=== PATIENT | male | born 1995 ===

== ENCOUNTER 2016-11-21 21:41 | Emergency (ER) | payer BC ==
[~2016-11-21] VITALS: Ht 180.3 cm; Wt 70.9 kg
[2016-11-21 21:46] VITALS: BP 141/89; PULSE 85; TEMP 36.7; O2SAT 99; Ht 180.3 cm; Wt 70.9 kg
[2016-11-21] MEDS ORDERED: AMOXICIL/CLAVU 875MG HOME PACK PO ONE (22:00)
[2016-11-21] MEDS ORDERED: AMOX875T PO (22:02)
--- NOTE | 2016-11-21 22:47 | EMERGENCY ROOM VISIT NOTE ---
History First contact with patient: 21:54 Chief Complaint: EAR PAIN Stated Complaint: L EAR PAIN History of Present Illness The patient is a 21 year old male who presents to the Emergency Room with ear pain worsening over the past 2-3 days. The patient states he has had a persistent nagging cough for about the past 8 days. He does have some sinus congestion but no fever or chills. He is without chest pain, chest tightness, shortness of breath, or sore throat. He is not taking anything over-the- counter for his discomfort. He considers himself usually healthy without chronic medical disease. He rates his discomfort a 6/10. Review of Systems More than 10 systems were reviewed and otherwise negative with the exception of history of present illness. Past Medical/Surgical History No chronic medical disease Family History No pertinent family history Social History Smoking Status: Never Smoker Occupation Status: [employer] student Current/Historical Medications Scheduled Amoxicillin & Pot Clavulanate (Augmentin 875-125 mg), 1 TAB PO BID Allergies Coded Allergies: No Known Allergies (Unverified , 11/21/16) Physical Exam Vital Signs Date Time Temp Pulse Resp B/P Pulse Ox O2 Delivery O2 Flow Rate FiO2 11/21/16 21:46 36.7 85 20 141/89 99 Room Air Pain Rating (0-10): 3.0 Physical Exam VITALS: Vitals are noted on the nurse's note and reviewed by myself. Vital signs stable. GENERAL: Well-developed, well-nourished, white male, who is in no acute distress and resting comfortably. Patient is cooperative with the examination. HEAD: Normocephalic atraumatic. EARS: External ear normal. External auditory with cerumen bilateral. TMs not visualized. No mastoid tenderness. EYES: Pupils equal round and reactive to light and accommodation. Conjunctivae without injection, sclerae without icterus. Extraocular movements intact. NOSE: Patent, turbinates without inflammation or discharge. MOUTH: Mucous membranes moist. Tonsils are not enlarged. Pharynx without erythema, blood, or exudate. Uvula midline. Airway patent. NECK: Supple without nuchal rigidity. No lymphadenopathy. No thyromegaly. Cervical spine is nontender. HEART: Regular rate and rhythm without murmurs gallops or rubs. LUNGS: Clear to auscultation bilaterally without wheezes, rales or rhonchi. No retractions or accessory muscle use. Dry cough is noted. Medical Decision & Procedures Medications Administered Medications (Trade) Dose Ordered Sig/Lety Route Start Time Stop Time Status Last Admin Dose Admin Amoxicillin/ Clavulanate Potassium (Augmentin 875MG Home Pack) 1 homepack UD ONCE PO 11/21/16 22:00 11/21/16 22:01 DC 11/21/16 22:00 1 HOMEPACK ED Course Physical exam and history were performed. Nursing notes and EMR were reviewed. Patient appears to have left ear pain for the past few days. He does have a dry cough on exam. The patient does not appear toxic and his exam is otherwise fairly benign. His TMs are not visualized due to cerumen. The patient will be started on Augmentin for his symptoms and asked to follow-up with [facility]. He may use ibuprofen and Tylenol for pain control. He was otherwise invited back to the ER with any new, worsening, or concerning symptoms. The chart was completed utilizing [employer] Speech Voice Recognition Software. Grammatical errors, random word insertions, pronoun errors, and incomplete sentences are an occasional consequence of this system due to software limitations, ambient noise, and hardware issues. Any formal questions or concerns about the content, text, or information contained within the body of this dictation should be directly addressed to the provider for clarification. . Medical Decision Differential diagnosis: Etiologies such as viral syndrome, otitis, pharyngitis, pneumonia, influenza, meningitis, urinary tract infection, sepsis, bacteremia, as well as others were entertained. Impression Primary Impression: Otalgia of left ear Additional Impression: Cough Departure Information Dispostion Home / Self-Care Condition GOOD Prescriptions Amoxicillin & Pot Clavulanate (Augmentin 875-125 mg) 1 Tab Tab 1 TAB PO BID for 9 Days, #18 TAB Prov: Moises Colin PA-C 11/21/16 Referrals No Doctor, Assigned (PCP) Forms HOME CARE DOCUMENTATION FORM, IMPORTANT VISIT INFORMATION Patient Instructions My [facility] Additional Instructions You were seen and evaluated today on an emergency basis only. This is not a substitute for, or an effort to provide, complete comprehensive medical care. It is not possible to recognize and treat all injuries or illnesses in a single emergency department visit. For this reason it is recommended that you followup with [facility] this week for ongoing care and evaluation. For baseline pain relief you may alternate ibuprofen and acetaminophen every 4 hours for pain control. Take 600 mg ibuprofen (Advil) and then 4 hours later take 1000 mg acetaminophen (Tylenol). Do not take more than 3000 mg acetaminophen in a single day. Amoxicillin Clavulanate (Augmentin) 875mg: Take one pill twice daily for 10 total days for your infection. All antibiotics can cause diarrhea. If this occurs and you feel worse or it does not resolve in 1-2 days follow up with your doctor or return to the Emergency Department as this could be signs of serious underlying problems. Any medication can cause an allergic reaction, stop the pills immediately and return to the ER for rash, hives, breathing difficulties, or swelling. You are welcome to return to the emergency department anytime with new, worsening, or concerning symptoms. Problem Qualifiers
== END 2016-11-21 22:27 | disposition home or self-care (01) ==
LOC: C.EDB 21:43 → C.EDD 22:27
DX: H92.02 Otalgia, left ear (principal); R05 Cough

== ENCOUNTER 2017-07-07 00:17 | Emergency (ER) | payer BC ==
[~2017-07-07] VITALS: Ht 180.3 cm; Wt 73.3 kg
[2017-07-07 00:16] VITALS: TEMP 36.3; Ht 180.3 cm; Wt 73.3 kg
[2017-07-07 00:32] VITALS: O2SAT 96
--- NOTE | 2017-07-07 00:49 | EMERGENCY ROOM VISIT NOTE ---
History Report prepared by Zohra: Nilson Chavarria Under the Supervision of: Dr. Agata Cohn D.O. First contact with patient: 00:20 Chief Complaint: ALCOHOL OVERDOSE Stated Complaint: ALCOHOL History of Present Illness The patient is a 22 year old male who presents to the Emergency Room with an alcohol overdose. This history is limited secondary to the patient's intoxication, thus being given by the police. Tonight, the patient was drinking alcohol at the [facility]. Afterward, he was walking down the sidewalks "flicking" cars off driving on the road. The police were called to the scene. When they arrived, they witnessed the patient fall onto his face. There was no loss of consciousness. He does not know how much he drank. He denies any more nausea after vomiting on the hospital room floor. He denies any neck pain, chest pain, back pain, abdominal pain, shortness of breath, leg pain , or arm pain. Source of History: patient, police Onset: Tonight Position: other (Global) Symptom Intensity: moderate Quality: other (ETOH Intoxication) Timing: constant Associated Symptoms: + vomiting, No neck pain, No chest pain, No SOB, No nausea, No abdominal pain, No back pain Review of Systems ROS is limited secondary to the patient's intoxication. Past Medical & Surgical Unable to obtain secondary to the patient's intoxication Family History Unable to obtain secondary to the patient's intoxication. Social History Smoking Status: Current Every Day Smoker Alcohol Use: occasionally Occupation Status: [employer] student Current/Historical Medications No Active Prescriptions or Reported Meds Allergies Coded Allergies: No Known Allergies (Unverified , 11/21/16) Physical Exam Vital Signs Date Time Temp Pulse Resp B/P (MAP) Pulse Ox O2 Delivery O2 Flow Rate FiO2 07/07/17 08:17 100 16 117/79 100 07/07/17 06:02 83 16 106/53 94 Room Air 07/07/17 04:19 78 07/07/17 04:15 82 16 98/68 95 07/07/17 02:46 78 16 109/65 96 Room Air 07/07/17 02:10 78 16 111/70 95 Room Air 07/07/17 01:03 95 16 115/63 94 Room Air 07/07/17 00:32 96 Room Air 07/07/17 00:25 122 07/07/17 00:16 36.3 135 16 109/85 100 Room Air Physical Exam GENERAL: Intoxicated appearing, smells of alcohol, well nourished, no distress, non-toxic HEAD: normal cephalic, abrasion noted to left superior forehead. EYE EXAM: minimal injected conjunctiva, PERRL and EOM's grossly intact OROPHARYNX: no exudate, no erythema, lips, buccal mucosa, and tongue normal and mucous membranes are moist. No evidence of dental trauma or oropharyngeal trauma. EARS: Partially obstructed secondary to cerumen bilaterally. NECK: supple, no nuchal rigidity, no adenopathy, non-tender, no step off CHEST: stable to compression anteriorly and posteriorly LUNGS: clear to auscultation. Normal chest wall mechanics HEART: no murmurs, S1 normal and S2 normal ABDOMEN: abdomen soft, non-tender, normo-active bowel sounds, no masses, no rebound or guarding. PELVIS: stable to compression anteriorly and posteriorly BACK: Back is symmetrical on inspection and there is no deformity, no midline tenderness, no CVA tenderness. UPPER EXTREMITIES: full active and passive range of motion of all joints without tenderness to palpation LOWER EXTREMITIES: full active and passive range of motion of all joints without tenderness to palpation NEURO EXAM: Intoxicated, cranial nerves II-XII grossly intact, normal speech, moving all extremities spontaneously. GCS: 15. Medical Decision & Procedures ER Provider Diagnostic Interpretation: Radiology results have been interpreted by the radiologist and reviewed by me. CT C SPINE: No fracture or malalignment Radiologist: Jose J West M.D. CT HEAD No intracranial hemorrhage, mass effect or calvarial fracture Ventricles are within limits and midline Right larger than left frothy fluid levels visualized maxillary sinuses and right ethmoid air cells No visualized fracture plane or soft tissue gas Mild left frontal scalp soft tissue swelling Radiologist: Jose J West M.D. Laboratory Results Test 07/07/17 00:35 Ethyl Alcohol mg/dL 285.0 mg/dl (0-3) Laboratory results per my review. ED Course 0020: The patient was evaluated in room B12B. A complete history and physical exam was performed. 0730: I reassessed the patient at this time. He is easily arousable. He does not remember "flicking off" traffic last night. He currently has no symptoms. I sat him up and gave him crackers and juice and will PO challenge him. We will then give him an ambulatory trail and see if he is able to be discharged. 0800: Upon reevaluation, the patient is feeling better. I discussed the findings and the treatment plan with the patient. He verbalizes agreement and understanding. He was discharged home. Medical Decision Differential diagnosis includes etiologies such as alcohol intoxication, toxicologic, infection, hypoglycemia, electrolyte abnormalities, cardiac sources , major intracranial, cervical, spinal, thoracic, abdominal, pelvic and neurologic injury. Fracture, contusion, sprain, strain, laceration, abrasions included as well. Patient monitored overnight with stable vital signs, no recurrent vomiting. Patient improved and by time of shift change patient was sober, tolerating by mouth, and related with a steady gait, and called for a friend to take him home. Repeat exam unchanged, no evidence of additional trauma or deterioration from closed head injury. Discussed with patient symptoms watch and return for, possible concussive symptoms given head injury, imaging performed, follow-up with family doctor as a precaution, he verbalized understanding was agreeable with plan. I have a low suspicion for any additional occult traumatic injury. Head Trauma GCS Score: 15 Medication Reconcilliation Current Medication List: was personally reviewed by me Blood Pressure Screening Patient's blood pressure: Low blood pressure Impression Primary Impression: Alcohol use with intoxication Additional Impressions: CHI (closed head injury) Abrasion Scribe Attestation The scribe's documentation has been prepared under my direction and personally reviewed by me in its entirety. I confirm that the note above accurately reflects all work, treatment, procedures, and medical decision making performed by me. Departure Information Dispostion Home / Self-Care Prescriptions No Active Prescriptions or Reported Meds Referrals No Doctor, Assigned (PCP) Forms HOME CARE DOCUMENTATION FORM, IMPORTANT VISIT INFORMATION Patient Instructions My [facility] Additional Instructions Please drink responsibly and in a safe location. Do not drink and drive. Please monitor for any worsening signs of head injury including increased headaches or dizziness, vision changes, difficulty walking, vomiting, if you have these or any other new or concerning symptoms, please return the emergency room. Problem Qualifiers Additional Impressions: CHI (closed head injury) Encounter type: initial encounter Qualified Codes: S09.90XA - Unspecified injury of head, initial encounter
--- NOTE | 2017-07-07 07:10 | DIAGNOSTIC IMAGING REPORT ---
CT SCAN OF THE BRAIN WITHOUT IV CONTRAST CLINICAL HISTORY: Trauma. Intoxication. COMPARISON STUDY: No priors. TECHNIQUE: Unenhanced axial CT scan of the brain is performed from the vertex to the skull base. A dose lowering technique was utilized adhering to the principles of ALARA. FINDINGS: Brain parenchyma: The brain parenchyma is normal in appearance. There is no hemorrhage, mass effect, or evidence of acute territorial ischemia by CT criteria. Knowles-white matter is preserved. No extra-axial fluid collection is seen. Ventricles, sulci, cisterns: Normal in configuration. Intracranial vasculature: The visualized intracranial vasculature at the skull base is normal in appearance. Calvarium: There is no depressed calvarial fracture. Soft tissues: There is a small left frontal scalp contusion. Sinuses and mastoids: There is fluid within the maxillary antra bilaterally, right greater than left. Trace fluid is also seen in the ethmoid sinuses. The mastoid air cells are well pneumatized. Orbits: The bony orbits are grossly intact. IMPRESSION: 1. No acute intracranial abnormality. 2. Air-fluid levels are seen within the maxillary antra bilaterally. Electronically signed by: Yossi Valdez M.D. 07/07/2017 7:09 AM Dictated Date/Time: 07/07/2017 7:07 AM
[2017-07-07 08:17] VITALS: BP 117/79; PULSE 100; O2SAT 100
--- NOTE | 2017-07-07 09:04 | DIAGNOSTIC IMAGING REPORT ---
CERVICAL SPINE W/O CLINICAL HISTORY: 22 years-old Male presenting with trauma, etoh. TECHNIQUE: Multidetector CT of the cervical spine was performed without the use of intravenous contrast. IV contrast: None. A dose lowering technique was used consistent with the principles of ALARA (as low as reasonably achievable). COMPARISON: None. CT DOSE (mGy.cm): The estimated cumulative dose is 1063.39 mGy.cm. FINDINGS: Multimedia Technician topogram: Unremarkable. Normal cervical lordosis. No acute fracture or subluxation. No degenerative change. No osseous spinal canal or neural foraminal narrowing. Limited intracranial evaluation within normal limits. Soft tissues of the neck within normal limits allowing for noncontrast technique. Lung apices clear. IMPRESSION: No acute osseous injury of the cervical spine. Electronically signed by: Vinayak Aguila M.D. 07/07/2017 9:02 AM Dictated Date/Time: 07/07/2017 7:09 AM
== END 2017-07-07 08:19 | disposition home or self-care (01) ==
LOC: EDBD 00:17 → C.EDB 00:18
DX: T51.0X1A Toxic effect of ethanol, accidental (unintentional), initial encounter (principal); S00.81XA Abrasion of other part of head, initial encounter; F17.210 Nicotine dependence, cigarettes, uncomplicated; W19.XXXA Unspecified fall, initial encounter